=== PATIENT | male | born 1965 | race Asian ===

== ENCOUNTER 2019-04-13 10:04 | Day surgery (SDC) | payer OTHER ==
[~2019-04-13] VITALS: Ht 165.1 cm; Wt 76.4 kg
[2019-04-13] VITALS (7 sets, daily range): BP systolic 116–131; BP diastolic 68–88; PULSE 72–81; RESP 16–22; Ht 165.1 cm; Wt 76.4 kg
[2019-04-13] MEDS ORDERED: METFORMIN (10:46)
[2019-04-13] MEDS ORDERED: BP MED (10:46)
[2019-04-13] MEDS ORDERED: ASA 81 (10:46)
--- NOTE | 2019-04-13 12:08 | PREAC ---
Date/Time of Note Date/Time of Note DATE: 04/13/19 TIME: 12:07 Anesthesia Eval and Record Evaluation Time Pre-Procedure Interview DATE: 04/13/19 TIME: 12:07 Age 53 Sex male NPO: 8 hrs Preoperative diagnosis screening Planned procedure Colonoscopy Past Medical History Past Medical History: Includes Cardio: HTN, Dyslipidemia, CAD, PTCA/Stent (X1) Endo: Diabetes Surgery & Anesthesia Issues No known issue Meds Anticoagulation: No Beta Rubén within 24 hr: No Reason Beta Rubén not given: Pt. not on B-Rubén Reported Medications [Bp Med] No Conflict Check 04/13/19 [Asa 81] No Conflict Check 04/13/19 [Metformin] No Conflict Check 04/13/19 Meds reviewed: Yes Allergies Coded Allergies: No Known Allergy (Unverified , 04/13/19) Allergies Reviewed: Yes Labs/Studies Labs Reviewed: Reviewed by anesthesiologist test: N/A Studies: ECG (n/a), CXR (n/a) Pre-procedure Exam Last vitals Vital Signs Date Temp Pulse Resp B/P (MAP) Pulse Ox O2 O2 Flow FiO2 Time Delivery Rate 04/13/19 97.6 75 20 131/68 94 Room Air 11:59 (89) Airway: Adequate mouth opening, Adequate thyromental dist Mallampati: Mallampati II Teeth: Normal Lung: Normal Heart: Normal ASA Physical Status ASA physical status: 3 Emergency: None Planned Anesthetic General/MAC: MAC Planned Pain Management Parenteral pain med Pre-operative Attestations Prior to commencing anesthesia and surgery, the patient was re-evaluated, there was verification of: *The patient's identity *The results of appropriate recent lab work and preoperative vital signs *The above evaluation not changing prior to induction *Anesthetic plan, risk benefits, alternative and complications discussed with patient/family; questions answered; patient/family understands, accepts and wishes to proceed. DAVIDE FERNANDEZ MD Apr 13, 2019 12:08
[2019-04-13] MEDS ORDERED: PROPOFOL 20 ML ONE (12:53)
--- NOTE | 2019-04-13 12:55 | PAC ---
Date/Time of Note Date/Time of Note DATE: 04/13/19 TIME: 12:55 Post-Anesthesia Notes Post-Anesthesia Note Last documented vital signs Vital Signs Date Temp Pulse Resp B/P (MAP) Pulse Ox O2 O2 Flow FiO2 Time Delivery Rate 04/13/19 97.6 75 20 131/68 94 Room Air 12:59 (89) Activity: WNL Respiratory function: WNL Cardiovascular function: WNL Mental status: Baseline Pain reasonably controlled: Yes Hydration appropriate: Yes Nausea/Vomiting absent: Yes DAVIDE FERNANDEZ MD Apr 13, 2019 12:55
== END 2019-04-13 14:04 | disposition home or self-care (01) ==
LOC: GIL 10:04 → EDSEX 10:04 → GIL 14:04
PROVIDERS: ATTEND Internal Medicine Gastroenterology
DX: Z12.11 Encounter for screening for malignant neoplasm of colon (principal); D12.8 Benign neoplasm of rectum; E11.9 Type 2 diabetes mellitus without complications; I10 Essential (primary) hypertension; I25.10 Atherosclerotic heart disease of native coronary artery without angina pectoris; E78.5 Hyperlipidemia, unspecified
CPT/HCPCS: 45380; 82962; 88305; Z7610